=== PATIENT | female | born 1990 ===

== ENCOUNTER 2017-10-24 10:51 | Emergency (ER) | payer OTHER ==
[2017-10-24 11:15] VITALS: BP 147/88
[2017-10-24] MEDS ORDERED: Ondansetron ODT TAB* 4 MG PO ONE (11:22)
--- NOTE | 2017-10-24 11:28 | UC ---
UC General HPI - HPI Summary HPI Summary: patient had a filling fall out and was having a large amount of tooth pain. she started taking excedrin last night one every half hour, is not sure how many she took. she denies trying to harm herself in any way. was just looking for pain relief. this morning, tooth pain is diminished byt she was very dizzy, ringing in her ears and nausea. - History of Current Complaint Chief Complaint: UCGeneralIllness Stated Complaint: DIZZY,NAUSEA Time Seen by Provider: 10/24/17 11:09 Hx Obtained From: Patient Hx Last Menstrual Period: [id number] Onset/Duration: Sudden Onset, Lasting Hours Timing: Constant Onset Severity: Mild Current Severity: Mild Pain Intensity: 0 Associated Signs & Symptoms: Positive: Dizziness, Nausea - Allergy/Home Medications Allergies/Adverse Reactions: Allergies Allergy/AdvReac Type Severity Reaction Status Date / Time No Known Allergies Allergy Verified 10/24/17 11:16 Home Medications: Home Medications Ethinyl Estradiol/Drospirenone [Ocella 3-0.03 mg] 1 tab PO DAILY 10/24/17 [ History Confirmed 10/24/17] PMH/Surg Hx/FS Hx/Imm Hx Previously Healthy: Yes - Surgical History Surgical History: Yes Surgery Procedure, Year, and Place: lungs 2007 - Family History Known Family History: Positive: Hypertension - Social History Alcohol Use: Occasionally Substance Use Type: None Smoking Status (MU): Never Smoked Tobacco Review of Systems Constitutional: Negative Eyes: Negative ENT: Dental Pain, Other - tinnitus Respiratory: Negative Cardiovascular: Negative Gastrointestinal: Nausea Genitourinary: Negative Motor: Negative Neurovascular: Negative Musculoskeletal: Negative Neurological: Headache Psychological: Negative Is Patient Immunocompromised?: No All Other Systems Reviewed And Are Negative: Yes Physical Exam Triage Information Reviewed: Yes Appearance: Well-Nourished, Ill-Appearing, Pain Distress Vital Signs: Initial Vital Signs Temp 99.1 F 10/24/17 11:09 Pulse 82 10/24/17 11:09 Resp 16 10/24/17 11:09 BP 147/88 10/24/17 11:09 Pulse Ox 100 10/24/17 11:09 Vital Signs Reviewed: Yes Eye Exam: Normal ENT: Positive: Pharynx normal, TMs normal Dental Exam: Normal Neck exam: Normal Neck: Positive: Supple, Nontender, No Lymphadenopathy Respiratory: Positive: Chest non-tender, Lungs clear, Normal breath sounds Cardiovascular Exam: Normal Cardiovascular: Positive: RRR, No Murmur, Pulses Normal Abdominal Exam: Normal Abdomen Description: Positive: Nontender, No Organomegaly, Soft Bowel Sounds: Positive: Present Musculoskeletal Exam: Normal Neurological Exam: Normal Psychological: Positive: Normal Response To Family Skin Exam: Normal Course/Dx - Course Course Of Treatment: hx obtained, exam performed ,meds reviewed, gave clear directions on how often to take the medication. UA obtained per patient request. - Differential Dx - Multi-Symptom Provider Diagnoses: over dose of excedrin pain medication. nausea. TINNITs Discharge - Sign-Out/Discharge Documenting (check all that apply): Patient Departure - Discharge Plan Condition: Stable Disposition: HOME Patient Education Materials: Analgesic/Decongestant (By mouth), Tinnitus (ED) Referrals: No Primary Care Phys,NOPCP [Primary Care Provider] - Additional Instructions: 1. INCREASE FLUID INTAKE 2. tAKE THE MEDICATION PRESCRIBED 3. SALT WATER GARGLES FOR KEEPING THE BROKEN TOOTH CLEAN AND FOLLOW UP WITH YOUR DENTIST WHEN YOU GET HOME. - Billing Disposition and Condition Condition: STABLE Disposition: Home
== END 2017-10-24 11:41 | disposition home or self-care (01) ==
LOC: UCCORT 10:51
DX: T39.1X1A Poisoning by 4-Aminophenol derivatives, accidental (unintentional), initial encounter (principal); H93.13 Tinnitus, bilateral; R42 Dizziness and giddiness; R11.0 Nausea; Y92.9 Unspecified place or not applicable
CPT/HCPCS: 81003; 99202; A9270-GY; G0463